=== PATIENT | female | born 1990 | race Caucasian/White ===

== ENCOUNTER 2017-01-11 12:56 | Emergency (ER) | payer BC ==
--- NOTE | 2017-01-14 12:39 | ER ---
ADMIT: 01/11/2017 RM/LOC: ER [facility] MR#: [id number] [address] [id number] SHERLYN REYES [address] [place] [address] Emergency Room Report SEX: F AGE: 26 : 1990 DATE: 01/11/2017 HISTORY OF PRESENT ILLNESS: Sherlyn is a 26-year-old female, who was trying to give her dog walk a walk and she stepped out of the house. Her finger still was at the door and the wind blew it, closed, sustaining a laceration to the left index finger tip. REVIEW OF SYSTEMS: Negative. IMMUNIZATIONS: Not up to date. PAST MEDICAL HISTORY: She is right-handed. She has ADHD and some issues with depression. MEDICATIONS: She takes Adderall and Zoloft. SOCIAL HISTORY: She is a smoker, half a pack a day. PHYSICAL EXAMINATION: VITAL SIGNS: Within normal limits. For laceration, see T-sheet. PROCEDURE: A 4 cm laceration at the tip of the left index finger. The x-ray was negative for fracture. This was right at the tip. There was no tendon injury. Bupivacaine was used to do a digital block. The area was cleansed up with UltraDEX, irrigated with saline. Betadine used to clean better the area. 4-0 nylon was used with [address]. She did partially deglove the tip of the finger at the anterior position. I was able to replace the skin and suture in place. The procedure was well tolerated. Tube gauze dressing and instructions to follow up and keep of the wound. I did prescribe [place] for pain control. The patient was sent home with a note for work and instructions to get re-evaluated in a couple of weeks. TORIE Cosby / Marcelo Chavez MD / sarah JOB #: [id number] CC: Marcelo Chavez MD, Attending Physician Cris Alvarez MD, Family Physician
== END 2017-01-11 15:40 | disposition home or self-care (01) ==
LOC: ER 12:56
PROC: 0HQGXZZ Repair Left Hand Skin, External Approach (ICD-10-PCS; principal; 2017-01-11)
DX: S61.211A Laceration without foreign body of left index finger without damage to nail, initial encounter (principal); F17.210 Nicotine dependence, cigarettes, uncomplicated; W23.0XXA Caught, crushed, jammed, or pinched between moving objects, initial encounter; Y92.009 Unspecified place in unspecified non-institutional (private) residence as the place of occurrence of the external cause